=== PATIENT | female | born 1975 | race Caucasian/White ===

== ENCOUNTER 2022-10-14 13:09 | Emergency (ER) | payer OTHER, SELFPAY ==
[2022-10-14 13:19] VITALS: BP 129/78; PULSE 106; RESP 16; TEMP 36.9; O2SAT 98
--- NOTE | 2022-10-14 13:45 | ED.GENADULT ---
HPI - General Adult General Chief complaint: Upper Respiratory Infection Stated complaint: Sore Throat Source: patient Mode of arrival: ambulatory Limitations: no limitations History of Present Illness HPI narrative: Patient presents for evaluation of sore throat for the last two days. No fever, chills, nausea, vomiting, diarrhea, cough, shortness of breath. 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 She had strep pharyngitis and developed glomerulonephritis thereafter. She does not smoke. No additional complaints or concerns. Related Data Home Medications Medication Instructions Recorded Confirmed alprazolam 0.5 mg tablet 0.5 mg DIRECTED 10/14/22 10/14/22 hydrochlorothiazide 25 mg tablet 25 mg DIRECTED 10/14/22 10/14/22 liothyronine 50 mcg tablet 50 mcg DIRECTED 10/14/22 10/14/22 Allergies Allergy/AdvReac Type Severity Reaction Status Date / Time No Known Allergies Allergy Verified 10/14/22 13:21 Review of Systems Review of Systems: CONSTITUTIONAL: Denies fever, chills, or sweats. EYES: Denies visual changes, redness, or discharge. ENT: Reports sore throat. Denies rhinorrhea, congestion, or otalgia. CARDIOVASCULAR: Denies chest pain, palpitations, or edema. RESPIRATORY: Denies cough or dyspnea. GASTROINTESTINAL: Denies abdominal pain, nausea, vomiting, or diarrhea. GENITOURINARY: Denies dysuria or hematuria. SKIN: Denies rash or itching. MUSCULOSKELETAL: Denies back pain, joint pain, or myalgia. NEUROLOGIC: Denies headache, numbness, dizziness, or weakness. PSYCHIATRIC: Denies anxiety or depression. [facility] Past Medical History Medical History Glomerulonephritis Surgical History Surgical History History of toe surgery Family History Family History Mother Family history non-contributory Social History Social History Substance use: never Additional occupation/education comments: speech therapist Gender identity (if verbalized by the patient): Female Sexual Orientation (if Verbalized by the Patient): Straight or Heterosexual Spiritual care concerns: No Exam Narrative: GENERAL: Well-appearing, well-nourished, and in no acute distress. HEAD: Normocephalic, atraumatic. EYES: PERRLA and EOMI. ENT: Nares clear, no rhinorrhea or epistaxis. Mucous membranes moist. There is posterior pharyngeal erythema without exudate. Uvula is midline. Bilateral TMs pearly jay nonbulging NECK: Supple. No adenopathy or masses. No carotid bruits or JVD CHEST: Clear to auscultation. No respiratory distress. No wheezes rales or rhonchi HEART: Regular rate and rhythm. No murmur heard. Normal peripheral pulses. ABDOMEN: Soft, nontender, nondistended, normal active bowel sounds. EXTREMITIES: Normal range of motion. No edema. SKIN: Warm, dry, no rash. NEURO: No focal deficits. Alert and oriented x3. PSYCH: Normal mood and affect. Course Course Emergency Course: This is a 47-year-old female who presented for evaluation of sore throat after recent strep exposure. Strep year positive. I spoke with patient and she indicated that her renal function is normal. Will discharge with amoxicillin. She states that she is no longer followed by Nephrology due to normal renal function on labs. Follow up with primary provider. Go to the ER for worsening symptoms. Patient in agreement with plan care. Level of Care: Express Care Visit Vital Signs Vital signs: Vital Signs Temperature 36.9 C 10/14/22 13:19 Pulse Rate 106 H 10/14/22 13:19 Respiratory Rate 16 10/14/22 13:19 Blood Pressure 129/78 10/14/22 13:19 Pulse Oximetry 98 10/14/22 13:19 Oxygen Delivery Room Air 10/14/22 13:19 Temperature 36.9 C
== END 2022-10-14 13:43 | disposition home or self-care (01) ==
PROVIDERS: Emergency Provider Nurse Practitioner
DX: J02.0 Streptococcal pharyngitis (principal)
CPT/HCPCS: 87880; 99203; G0463

== ENCOUNTER 2022-11-04 13:44 | Emergency (ER) | payer OTHER, SELFPAY ==
[2022-11-04 13:55] VITALS: BP 125/75; PULSE 117; RESP 16; TEMP 36.5; O2SAT 99
--- NOTE | 2022-11-04 14:03 | ED.URI ---
HPI - URI/Sore Throat General Chief Complaint: Upper Respiratory Infection Stated Complaint: sore throat Time Seen by Provider: 11/04/22 13:55 Source: patient, RN notes reviewed and old records reviewed Mode of arrival: ambulatory Limitations: no limitations History of Present Illness HPI Narrative: 47-year-old female presents to the [facility] with complaints of a sore throat that started today. Has not taken anything for her symptoms. Concern for strep, diagnosed about 3 weeks ago with strep. Finished her antibiotics. Related Data Home Medications Medication Instructions Recorded Confirmed alprazolam 0.5 mg tablet 0.5 mg DIRECTED 10/14/22 11/04/22 hydrochlorothiazide 25 mg tablet 25 mg DIRECTED 10/14/22 11/04/22 liothyronine 50 mcg tablet 50 mcg DIRECTED 10/14/22 11/04/22 Allergies Allergy/AdvReac Type Severity Reaction Status Date / Time No Known Allergies Allergy Verified 11/04/22 13:54 Review of Systems Review of Systems: All systems reviewed & are unremarkable except as noted in HPI and below Constitutional: Constitutional: Reports no additional constitutional complaints Eyes: Eyes: Reports no additional eye complaints ENT: Reports as per HPI and Reports sore throat Cardiovascular: Cardiovascular: Reports no additional cardiovascular complaints, Denies chest pain and Denies dyspnea Respiratory: Respiratory: Reports no additional respiratory complaints, Denies chest congestion, Denies cough and Denies dyspnea Gastrointestinal: Gastrointestinal: Reports no additional gastrointestinal complaints, Denies abdominal pain, Denies nausea and Denies vomiting Musculoskeletal: Musculoskeletal: Reports no additional musculoskeletal complaints Integumentary/Breasts: Skin/Breast: Reports system reviewed and no additional complaints, except as docu Neurologic: Reports system reviewed and no additional complaints, except as documented Psychiatric: Psychiatric: Reports no additional psychiatric complaints Allergic/Immunologic: Allergic/Immunologic: Reports no additional allergic/immunologic complaints PMFSH Past Medical History Medical History Glomerulonephritis Surgical History Surgical History History of toe surgery Family History Family History Mother Family history non-contributory Social History Social History (Reviewed 11/04/22 @ 19:00 by SONU Umana Substance use: never Additional occupation/education comments: speech therapist Gender identity (if verbalized by the patient): Female Sexual Orientation (if Verbalized by the Patient): Straight or Heterosexual Spiritual care concerns: No Comments At the time of my signature, I reviewed and agree with the nursing past medical, surgical, social, and family history. There is no relevant family history pertinent to the patient complaint. Exam Const: General: cooperative, healthy appearing, comfortable, no acute distress, well developed, alert and well nourished Nutritional Appearance: well nourished Orientation/consciousness: patient oriented x3 Limitations: no limitations HENMT: Head: normal to inspection Ears: hearing grossly normal bilaterally and external ears normal Face/Nose/Sinus: Normal external nose present, Normal nares present, Normal nasal mucous membranes and turbinates present and normal facial exam Face and sinus: normal facial exam Mouth: Yes Normal oral and palatal mucosa present, Yes lip normal and Yes moist mucous membranes Throat: posterior oropharynx normal, uvula midline and tonsils absent Eyes: General: appearance normal, both eyes and all related structures Alignment and Position: alignment normal Periorbital: periorbital findings normal Conjunctivae: conjunctivae normal Pupils: Equal, round and reactive pupils present EOM: EOMs in
== END 2022-11-04 14:23 | disposition home or self-care (01) ==
PROVIDERS: Emergency Provider Nurse Practitioner
DX: J02.9 Acute pharyngitis, unspecified (principal); N05.9 Unspecified nephritic syndrome with unspecified morphologic changes
CPT/HCPCS: 87081; 87880; 99213; G0463